=== PATIENT | male | born 1940 | race Asian ===

== ENCOUNTER 2024-04-23 12:28 | Inpatient (IN) | payer OTHER, MEDICAID ==
[2024-04-22 20:00] VITALS: O2SAT 96
[~2024-04-23] VITALS: Ht 162.6 cm; Wt 65.8 kg
[2024-04-23 10:30] VITALS: BP 125/61; PULSE 94; RESP 19; TEMP 98.4; O2SAT 98
[2024-04-23] MEDS ORDERED: ALBUTEROL SULFATE HFA 90 MCG/PUFF 8 GM INHALER IH PRN (13:45)
[2024-04-23] MEDS ORDERED: ACETAMINOPHEN 325 MG TABLET PO PRN (13:45)
[2024-04-23] MEDS: ACETAMINOPHEN 500 MG TABLET PO PRN (19:03)
[2024-04-23] MEDS ORDERED: MELATONIN 5 MG TABLET PO PRN (19:30)
[2024-04-23] MEDS ORDERED: DEXTROSE 50%-WATER 25 GM/50 ML SYRINGE IVP PRN (19:30)
[2024-04-23 20:00] VITALS: BP 133/66; PULSE 115; RESP 18; TEMP 98.8; O2SAT 96
[2024-04-23] MEDS: SENNOSIDES 8.6 MG TABLET PO SCH (20:23)
[2024-04-23] MEDS: TAMSULOSIN HCL 0.4 MG CAPSULE PO SCH (20:23)
[2024-04-23] MEDS: LevETIRAcetam 500 MG TABLET PO SCH (20:23)
[2024-04-23] MEDS: DOCUSATE SODIUM 100 MG CAPSULE PO SCH (20:23)
[2024-04-23] MEDS: ENOXAPARIN SODIUM 30 MG/0.3 ML PF SYRINGE SQ SCH (20:27)
[2024-04-23] MEDS: LATANOPROST 0.005% 2.5 ML OPHTHALMIC SOLUTION OU SCH (20:31)
[2024-04-23] MEDS: ETHYL ALCOHOL 62% ANTISEPTIC NASAL SANITIZER 0.6 ML AMPUL NASAL SCH (20:33)
[2024-04-23] MEDS: INSULIN LISPRO 100 UNITS/ML SQ PRN (21:13)
[2024-04-23 21:30] LABS: GLUCOMETER DEV NAME(LOC) 2WR.1D; GLUCOSE,POINT OF CARE 181 MG/DL (70-110)
[2024-04-24 07:15] LABS: GLUCOMETER DEV NAME(LOC) 2WR.2B; GLUCOSE,POINT OF CARE 138 MG/DL (70-110)
[2024-04-24 08:55] LABS: BASOPHILS % (AUTO) 0.4 % (0.0-2.0); EOSINOPHILS % (AUTO) 0.7 % (1.0-6.0); HEMATOCRIT 33.9 % (41-53); HEMOGLOBIN 11.8 g/dL (13.5-17.5); LYMPHOCYTES # (AUTO) 1.2 K/uL (1.0-4.8); LYMPHOCYTES % (AUTO) 14.2 % (22.0-44.0); MEAN CORPUSCULAR HEMOGLOBIN 32.4 pg (26.0-34.0); MEAN CORPUSCULAR HGB CONC 34.8 G/dL (31.0-37.0); MEAN CORPUSCULAR VOLUME 93 fL (80-100); MONOCYTES # (AUTO) 0.9 K/uL (0.1-1.0); MONOCYTES % (AUTO) 11.1 % (2.0-9.0); NEUTROPHILS # (AUTO) 6.2 K/uL (1.8-7.7); NEUTROPHILS % (AUTO) 73.6 % (40.0-70.0); PLATELET COUNT (AUTO) 169 K/uL (150-450); RED BLOOD CELL COUNT(AUTO) 3.65 MIL/uL (4.50-5.90); WHITE BLOOD COUNT (AUTO) 8.5 K/uL (4.5-11.0)
[2024-04-24] MEDS: AmLODIPine BESYLATE 5 MG TABLET PO SCH (08:58)
[2024-04-24] MEDS: CETIRIZINE HCL 10 MG TABLET PO SCH (08:59)
[2024-04-24 09:11] LABS: ALANINE AMINOTRANSFERASE 25 U/L (12-78); ALBUMIN 2.6 g/dL (3.4-5.0); ALKALINE PHOSPHATASE 59 U/L (46-116); ANION GAP 6 mmol/L (8-16); ASPARTATE AMINOTRANSFERASE 23 U/L (15-37); BILIRUBIN,TOTAL 0.7 mg/dL (0.1-1.0); CALCIUM, TOTAL 8.7 mg/dL (8.8-10.5); CARBON DIOXIDE 26 mmol/L (22-29); CHLORIDE 102 mmol/L (98-107); GLOMERULAR FILTR. RATE CALC > 60 mL/min (>60); GLUCOSE,RANDOM 191 mg/dL (70-110); POTASSIUM 3.6 mmol/L (3.5-5.1); SODIUM SERUM 134 mmol/L (136-145); TOTAL PROTEIN, SERUM 6.6 g/dL (6.4-8.2); UREA NITROGEN, BLOOD 19 mg/dL (7-18)
[2024-04-24 10:53] VITALS: O2SAT 98
[2024-04-24 12:46] LABS: GLUCOMETER DEV NAME(LOC) 2WR.1D; GLUCOSE,POINT OF CARE 143 MG/DL (70-110)
[2024-04-24 17:01] LABS: GLUCOMETER DEV NAME(LOC) 2WR.1D; GLUCOSE,POINT OF CARE 133 MG/DL (70-110)
[2024-04-24 20:03] VITALS: BP 105/64; PULSE 91; RESP 19; TEMP 98.1; O2SAT 98
[2024-04-24] MEDS: -LIDODERM PATCH NOTE- MISC SCH (20:49)
[2024-04-24 21:56] LABS: GLUCOMETER DEV NAME(LOC) 2WR.1D; GLUCOSE,POINT OF CARE 210 MG/DL (70-110)
[2024-04-25 00:04] VITALS: O2SAT 98
[2024-04-25 07:11] LABS: GLUCOMETER DEV NAME(LOC) 2WR.2B; GLUCOSE,POINT OF CARE 131 MG/DL (70-110)
[2024-04-25 08:00] VITALS: BP 128/64; PULSE 89; RESP 20; TEMP 98.2; O2SAT 97
[2024-04-25] MEDS: LIDOCAINE 5% TRANSDERMAL PATCH TD SCH (08:39)
[2024-04-25 13:02] LABS: GLUCOMETER DEV NAME(LOC) 2WR.1D; GLUCOSE,POINT OF CARE 136 MG/DL (70-110)
[2024-04-25 17:05] LABS: GLUCOMETER DEV NAME(LOC) 2WR.2B; GLUCOSE,POINT OF CARE 159 MG/DL (70-110)
[2024-04-25 18:40] VITALS: BP 131/65; PULSE 99; RESP 20; TEMP 98.7; O2SAT 96
[2024-04-25 20:00] VITALS: BP 126/68; PULSE 93; RESP 18; TEMP 98.9; O2SAT 99
[2024-04-25 21:26] LABS: GLUCOMETER DEV NAME(LOC) 2WR.2B; GLUCOSE,POINT OF CARE 164 MG/DL (70-110)
[2024-04-26 06:56] LABS: GLUCOMETER DEV NAME(LOC) 2WR.2B; GLUCOSE,POINT OF CARE 128 MG/DL (70-110)
[2024-04-26 08:00] VITALS: BP 136/72; PULSE 89; RESP 18; TEMP 98; O2SAT 99
[2024-04-26] MEDS: SitaGLIPtin PHOSPHATE 25 MG TABLET PO SCH (08:24)
[2024-04-26 12:50] LABS: GLUCOMETER DEV NAME(LOC) 2WR.2B; GLUCOSE,POINT OF CARE 143 MG/DL (70-110)
[2024-04-26 13:05] VITALS: BP 119/53; PULSE 73; RESP 18; O2SAT 98
[2024-04-26 17:41] LABS: GLUCOMETER DEV NAME(LOC) 2WR.1D; GLUCOSE,POINT OF CARE 112 MG/DL (70-110)
[2024-04-26 19:41] VITALS: BP 141/81; PULSE 97; RESP 18; TEMP 97.8; O2SAT 97
[2024-04-26] MEDS: DICLOFENAC SODIUM 1% 100 GM GEL [2GM] TP PRN (19:47)
[2024-04-26 22:07] VITALS: O2SAT 97
[2024-04-27 04:36] LABS: GLUCOMETER DEV NAME(LOC) 2WR.1D; GLUCOSE,POINT OF CARE 256 MG/DL (70-110)
[2024-04-27 07:15] LABS: GLUCOMETER DEV NAME(LOC) 2WR.2B; GLUCOSE,POINT OF CARE 128 MG/DL (70-110)
[2024-04-27 07:35] VITALS: BP 122/63; PULSE 88; RESP 18; TEMP 98.9; O2SAT 99
[2024-04-27 09:22] VITALS: BP 122/63; PULSE 88; RESP 18; TEMP 98.9; O2SAT 99
[2024-04-27 13:01] LABS: GLUCOMETER DEV NAME(LOC) 2WR.1D; GLUCOSE,POINT OF CARE 143 MG/DL (70-110)
[2024-04-27 17:40] LABS: GLUCOMETER DEV NAME(LOC) 2WR.2B; GLUCOSE,POINT OF CARE 133 MG/DL (70-110)
[2024-04-27 19:57] VITALS: BP 146/72; PULSE 92; RESP 18; TEMP 99.2; O2SAT 97
[2024-04-27 20:00] VITALS: O2SAT 97
[2024-04-27 21:11] LABS: GLUCOMETER DEV NAME(LOC) 2WR.2B; GLUCOSE,POINT OF CARE 191 MG/DL (70-110)
[2024-04-28 06:00] VITALS: TEMP 98.7
[2024-04-28 07:05] LABS: GLUCOMETER DEV NAME(LOC) 2WR.2B; GLUCOSE,POINT OF CARE 119 MG/DL (70-110)
[2024-04-28 07:42] VITALS: BP 133/68; PULSE 79; RESP 18; TEMP 99.2; O2SAT 100
[2024-04-28 08:00] VITALS: BP 133/68; PULSE 79; RESP 18; TEMP 99.2; O2SAT 100
[2024-04-28 10:50] VITALS: BP 117/63; PULSE 90; RESP 18; O2SAT 100
[2024-04-28 11:55] LABS: GLUCOMETER DEV NAME(LOC) 2WR.2B; GLUCOSE,POINT OF CARE 156 MG/DL (70-110)
[2024-04-28 18:06] LABS: GLUCOMETER DEV NAME(LOC) 2WR.2B; GLUCOSE,POINT OF CARE 104 MG/DL (70-110)
[2024-04-28 20:00] VITALS: BP 143/79; PULSE 93; RESP 18; TEMP 98.7; O2SAT 99
[2024-04-28 21:20] LABS: GLUCOMETER DEV NAME(LOC) 2WR.2B; GLUCOSE,POINT OF CARE 140 MG/DL (70-110)
[2024-04-29] MEDS ORDERED: LIDO700A15 TP (05:33)
[2024-04-29] MEDS ORDERED: XALA2.5OS OU (05:33)
[2024-04-29] MEDS ORDERED: SITA25 PO (05:33)
[2024-04-29] MEDS ORDERED: CETI-450 PO (05:33)
[2024-04-29] MEDS ORDERED: DOCU-385 PO (05:33)
[2024-04-29] MEDS ORDERED: TAMS0.4C94 PO (05:33)
[2024-04-29] MEDS ORDERED: INSU100V SQ (05:33)
[2024-04-29] MEDS ORDERED: AMLO-257 PO (05:33)
[2024-04-29] MEDS ORDERED: SENN-376 PO (05:33)
[2024-04-29] MEDS ORDERED: DICL100G60 TP (05:40)
[2024-04-29] MEDS ORDERED: ACET-3385 PO (05:40)
[2024-04-29 07:01] LABS: GLUCOMETER DEV NAME(LOC) 2WR.2B; GLUCOSE,POINT OF CARE 116 MG/DL (70-110)
[2024-04-29 08:00] VITALS: BP 131/77; PULSE 78; RESP 18; TEMP 99; O2SAT 96
[2024-04-29 12:56] LABS: GLUCOMETER DEV NAME(LOC) 2WR.1D; GLUCOSE,POINT OF CARE 141 MG/DL (70-110)
[2024-04-29 17:35] LABS: GLUCOMETER DEV NAME(LOC) 2WR.2B; GLUCOSE,POINT OF CARE 141 MG/DL (70-110)
[2024-04-29 20:02] VITALS: BP 145/63; PULSE 89; RESP 18; TEMP 98.7; O2SAT 98
[2024-04-29 23:15] LABS: GLUCOMETER DEV NAME(LOC) 2WR.2B; GLUCOSE,POINT OF CARE 179 MG/DL (70-110)
[2024-04-29 23:52] VITALS: O2SAT 98
[2024-04-30 07:00] LABS: GLUCOMETER DEV NAME(LOC) 2WR.1D; GLUCOSE,POINT OF CARE 138 MG/DL (70-110)
[2024-04-30 08:49] VITALS: BP 138/74; PULSE 84; RESP 18; TEMP 98.3; O2SAT 97
[2024-04-30 09:06] VITALS: O2SAT 97
[2024-04-30 12:06] LABS: GLUCOMETER DEV NAME(LOC) 2WR.2B; GLUCOSE,POINT OF CARE 104 MG/DL (70-110)
[2024-04-30 17:35] LABS: GLUCOMETER DEV NAME(LOC) 2WR.2B; GLUCOSE,POINT OF CARE 112 MG/DL (70-110)
[2024-04-30 20:02] VITALS: BP 123/68; PULSE 86; RESP 18; TEMP 98.5; O2SAT 98
[2024-04-30 21:51] LABS: GLUCOMETER DEV NAME(LOC) 2WR.2B; GLUCOSE,POINT OF CARE 161 MG/DL (70-110)
[2024-04-30 22:02] VITALS: O2SAT 98
[2024-05-01 06:40] LABS: GLUCOMETER DEV NAME(LOC) 2WR.1D; GLUCOSE,POINT OF CARE 121 MG/DL (70-110)
[2024-05-01 08:00] VITALS: BP 138/76; PULSE 85; RESP 18; TEMP 98; O2SAT 97
[2024-05-01 12:51] LABS: GLUCOMETER DEV NAME(LOC) 2WR.2B; GLUCOSE,POINT OF CARE 116 MG/DL (70-110)
[2024-05-01 15:52] VITALS: O2SAT 97
[2024-05-01 17:40] LABS: GLUCOMETER DEV NAME(LOC) 2WR.1D; GLUCOSE,POINT OF CARE 89 MG/DL (70-110)
[2024-05-01 20:00] VITALS: BP 131/65; PULSE 84; RESP 18; TEMP 98.3; O2SAT 97
[2024-05-02 00:20] VITALS: O2SAT 97
[2024-05-02 05:26] LABS: GLUCOMETER DEV NAME(LOC) 2WR.2B; GLUCOSE,POINT OF CARE 206 MG/DL (70-110)
[2024-05-02 06:55] LABS: GLUCOMETER DEV NAME(LOC) 2WR.1D; GLUCOSE,POINT OF CARE 133 MG/DL (70-110)
[2024-05-02 08:00] VITALS: BP 107/65; PULSE 85; RESP 18; TEMP 98.4; O2SAT 100
[2024-05-02 12:31] LABS: GLUCOMETER DEV NAME(LOC) 2WR.1D; GLUCOSE,POINT OF CARE 102 MG/DL (70-110)
[2024-05-02 17:50] LABS: GLUCOMETER DEV NAME(LOC) 2WR.2B; GLUCOSE,POINT OF CARE 116 MG/DL (70-110)
[2024-05-02 19:54] VITALS: BP 128/64; PULSE 85; RESP 18; TEMP 98.2; O2SAT 96
[2024-05-02 20:00] VITALS: O2SAT 96
[2024-05-02 22:35] LABS: GLUCOMETER DEV NAME(LOC) 2WR.2B; GLUCOSE,POINT OF CARE 157 MG/DL (70-110)
[2024-05-03 06:55] LABS: GLUCOMETER DEV NAME(LOC) 2WR.1D; GLUCOSE,POINT OF CARE 123 MG/DL (70-110)
[2024-05-03 08:00] VITALS: BP 130/69; PULSE 60; RESP 19; TEMP 97.7; O2SAT 99
[2024-05-03 12:06] LABS: GLUCOMETER DEV NAME(LOC) 2WR.1D; GLUCOSE,POINT OF CARE 95 MG/DL (70-110)
[2024-05-03] MEDS ORDERED: TAMS0.4C94 PO (12:46)
[2024-05-03] MEDS ORDERED: CETI-450 PO (12:46)
[2024-05-03] MEDS ORDERED: AMLO-257 PO (12:46)
[2024-05-03] MEDS ORDERED: XALA2.5OS OU (12:46)
[2024-05-03] MEDS ORDERED: SITA25 PO (12:46)
[2024-05-03 17:31] LABS: GLUCOMETER DEV NAME(LOC) 2WR.2B; GLUCOSE,POINT OF CARE 93 MG/DL (70-110)
[2024-05-03 20:01] VITALS: BP 132/68; PULSE 85; RESP 18; TEMP 98; O2SAT 98
[2024-05-03 21:25] LABS: GLUCOMETER DEV NAME(LOC) 2WR.1D; GLUCOSE,POINT OF CARE 107 MG/DL (70-110)
[2024-05-03 22:30] VITALS: O2SAT 98
[2024-05-04 07:05] LABS: GLUCOMETER DEV NAME(LOC) 2WR.1D; GLUCOSE,POINT OF CARE 112 MG/DL (70-110)
[2024-05-04 08:00] VITALS: BP 129/75; PULSE 82; RESP 18; TEMP 97.8; O2SAT 99
[2024-05-04] MEDS ORDERED: LIDO700A30 TD (12:05)
[2024-05-04 12:35] LABS: GLUCOMETER DEV NAME(LOC) 2WR.2B; GLUCOSE,POINT OF CARE 117 MG/DL (70-110)
== END 2024-05-04 15:30 | disposition home health service (06) | DRG 949 ==
LOC: 2WR 12:35 → UNDOADMIN 13:29
PROVIDERS: ADMIT Physical Medicine & Rehabilitation; ATTEND Physical Medicine & Rehabilitation
DX: S06.6X0D Traumatic subarachnoid hemorrhage without loss of consciousness, subsequent encounter (principal); E46 Unspecified protein-calorie malnutrition; W18.39XD Other fall on same level, subsequent encounter; Z74.09 Other reduced mobility; R26.9 Unspecified abnormalities of gait and mobility; I10 Essential (primary) hypertension; E11.9 Type 2 diabetes mellitus without complications; D64.9 Anemia, unspecified; H91.90 Unspecified hearing loss, unspecified ear; S42.001A Fracture of unspecified part of right clavicle, initial encounter for closed fracture; R56.9 Unspecified convulsions; N40.0 Benign prostatic hyperplasia without lower urinary tract symptoms; K59.00 Constipation, unspecified; G47.00 Insomnia, unspecified; R45.87 Impulsiveness; R41.3 Other amnesia; R54 Age-related physical debility; E87.8 Other disorders of electrolyte and fluid balance, not elsewhere classified; S42.001D Fracture of unspecified part of right clavicle, subsequent encounter for fracture with routine healing; Z79.899 Other long term (current) drug therapy; Z88.8 Allergy status to other drugs, medicaments and biological substances; Z87.820 Personal history of traumatic brain injury; Z91.199 Patient's noncompliance with other medical treatment and regimen due to unspecified reason
CPT/HCPCS: 80053; 82962; 83036; 85025; 87081; 92507; 92523; 97110; 97112; 97116; 97162; 97167; 97530; 97535; 99366; J1650